=== PATIENT | female | born 1990 | race American Indian/Alaskan Native ===

== ENCOUNTER 2020-12-14 18:19 | Emergency (ER) | payer OTHER ==
[2020-12-14 18:55] VITALS: BP 143/101
--- NOTE | 2020-12-14 18:59 | Emergency Department Report ---
- General Stated Complaint: POS COVID TEST MONDAY/CHEST PAIN Time Seen by Provider: 12/14/20 18:48 - History of Present Illness Initial Comments: 30-year-old -[place] female recently diagnosed with coronavirus and past medical history of asthma presents to the emergency department complaining of cough congestion and coryza which is been progressively worsening since the onset for the last 2 days. No hemoptysis no hematemesis hematochezia. Her is also sick and has a lot of gastrointestinal symptoms but she states that not yet affected her she has been managing fairly well in a normal sinus with exception of the respiratory issues MD Complaint: cough, rhinorrhea, nasal congestion Severity: mild Consistency: constant Improves With: nothing Worsens With: nothing Associated Symptoms: nasal congestion, cough. denies: shortness of breath, abdominal pain, vomiting, diarrhea, confusion, right sweats, weight loss, epistaxis, hoarseness - Related Data Previous Rx's Medication Instructions Recorded Last Taken Type Albuterol Mdi (or & Nicu Only) 2 puff IH QID PRN #1 inhalation 12/14/20 Unknown Rx [ProAir HFA Inhaler] Albuterol Mdi (or & Nicu Only) 2 puff IH QID PRN #8.5 gram 12/14/20 Unknown Rx [ProAir HFA Inhaler] Benzonatate [Tessalon Perles] 100 mg PO Q8HR #20 capsule 12/14/20 Unknown Rx predniSONE [Deltasone] 20 mg PO QDAY #5 tab 12/14/20 Unknown Rx predniSONE [Deltasone] 50 mg PO QDAY #5 tab 12/14/20 Unknown Rx Allergies Allergy/AdvReac Type Severity Reaction Status Date / Time Penicillins Allergy Hives Verified 12/14/20 18:51 ED Review of Systems ROS: Stated complaint: POS COVID TEST MONDAY/CHEST PAIN Other details as noted in HPI Comment: All other systems reviewed and negative ED Past Medical Hx - Medications Home Medications: Home Medications Medication Instructions Recorded Confirmed Last Taken Type Albuterol Mdi (or & Nicu Only) 2 puff IH QID PRN #1 inhalation 12/14/20 Unknown Rx [ProAir HFA Inhaler] Albuterol Mdi (or & Nicu Only) 2 puff IH QID PRN #8.5 gram 12/14/20 Unknown Rx [ProAir HFA Inhaler] Benzonatate [Tessalon Perles] 100 mg PO Q8HR #20 capsule 12/14/20 Unknown Rx predniSONE [Deltasone] 20 mg PO QDAY #5 tab 12/14/20 Unknown Rx predniSONE [Deltasone] 50 mg PO QDAY #5 tab 12/14/20 Unknown Rx ED Physical Exam - General General appearance: alert, in no apparent distress - Head Head exam: Present: atraumatic, normocephalic - Eye Eye exam: Present: normal appearance, PERRL, EOMI Pupils: Present: normal accommodation - ENT ENT exam: Present: normal exam, mucous membranes moist, TM's normal bilaterally - Neck Neck exam: Present: normal inspection, full ROM - Respiratory Respiratory exam: Present: normal lung sounds bilaterally. Absent: respiratory distress, wheezes, rales, rhonchi - Cardiovascular Cardiovascular Exam: Present: regular rate, normal rhythm. Absent: bradycardia, tachycardia, systolic murmur, diastolic murmur, rubs, gallop - GI/Abdominal GI/Abdominal exam: Present: soft, normal bowel sounds - Extremities Exam Extremities exam: Present: normal inspection, normal capillary refill - Back Exam Back exam: Present: normal inspection. Absent: CVA tenderness (R), CVA tenderness (L), muscle spasm, paraspinal tenderness - Neurological Exam Neurological exam: Present: alert, oriented X3, CN II-XII intact. Absent: normal gait, abnormal gait, motor sensory deficit - Psychiatric Psychiatric exam: Present: normal affect, normal mood. Absent: anxious, flat affect, manic - Skin Skin exam: Present: warm, dry, intact, normal color. Absent: rash ED Course Vital Signs 12/14/20 18:52 Temperature 99.4 F Pulse Rate 104 H Respiratory 18 Rate Blood Pressure 143/101 [Right] O2 Sat by Pulse 99 Oximetry ED Medical Decision Making - Radiology Data Radiology results: report reviewed [facility] [address] [place] [address] XRay Report Signed Patient: JESSICA VILLASEÑOR MR#: [id number] : 1990 Acct:[id number] Age/Sex: 30 / F ADM Date: 12/14/20 Loc: ED Attending Dr: Ordering Physician: ISRAEL JOHNSON Date of Service: 12/14/20 Procedure(s): XR chest routine 2V Accession Number(s): [id number] cc: ISRAEL JOHNSON Fluoro Time In Minutes: CHEST PA AND LATERAL VIEWS INDICATION: sob, covid. COMPARISON: None. FINDINGS: Support devices: None. Heart: Within normal limits. Lungs/Pleura: No acute pulmonary or pleural findings. IMPRESSION: 1. No acute findings. Signer Name: Abiel Sage MD Signed: 12/14/2020 7:48 PM Workstation Name: [id number] Transcribed By: NAKITA Dictated By: Abiel Sage MD Electronically Authenticated By: Abiel Sage MD Signed Date/Time: 12/14/201947 DD/ 47 TD/TT: - Medical Decision Making This patient presents to the emergency department with fever and lower respiratory symptoms concerning for viral syndrome including flu and COVID-19. Patient has suspicion and is for COVID-19 infection reports testing positive over a week ago. Chest x-ray is normal showing no pneumonia she is ambulatory speaks in full sentences no desaturation no significant exertional dyspnea differential diagnosis includes other viral causes of lower respiratory symptoms, pneumonia, asthma, bronchitis. Patient is well-appearing with acceptable vitals, lacks comorbidities admission and a reassuring physical examination and is safe to be discharged home and advised to continue Covid protocol.. Provide strict return precautions and instructions on self isolation/quarantine and anticipatory guidance. The patient no necessary fluid hydration, vitamin C and zinc therapy and symptomatic treatment. Critical care attestation.: If time is entered above; I have spent that time in minutes in the direct care of this critically ill patient, excluding procedure time. ED Disposition Clinical Impression: Cough, Viral syndrome Disposition: DC- TO HOME OR SELFCARE Is pt being admited?: No Does the pt Need Aspirin: No Condition: Stable Instructions: Cool Mist Vaporizer, Viral Respiratory Infection, [id number], Viral Respiratory Infection, Cough, Adult, Viral Illness, Adult Prescriptions: predniSONE [Deltasone] 20 mg PO QDAY #5 tab predniSONE [Deltasone] 50 mg PO QDAY #5 tab Albuterol Mdi (or & Nicu Only) [ProAir HFA Inhaler] 2 puff IH QID PRN #1 inhalation PRN Reason: Shortness Of Breath Albuterol Mdi (or & Nicu Only) [ProAir HFA Inhaler] 2 puff IH QID PRN #8.5 gram PRN Reason: Shortness Of Breath Benzonatate [Tessalon Perles] 100 mg PO Q8HR #20 capsule Referrals: PRIMARY CARE, [Primary Care Provider] - 3-5 Days [facility] [Provider Group] - 3-5 Days
[2020-12-14 19:18] LABS: HCG Qualitative,Urine Negative (Negative)
--- NOTE | 2020-12-14 19:53 | XRay Report ---
CHEST PA AND LATERAL VIEWS INDICATION: sob, covid. COMPARISON: None. FINDINGS: Support devices: None. Heart: Within normal limits. Lungs/Pleura: No acute pulmonary or pleural findings. IMPRESSION: 1. No acute findings. Signer Name: Abiel Sage MD Signed: 12/14/2020 7:48 PM Workstation Name: [id number]
== END 2020-12-14 23:00 | disposition home or self-care (01) ==
LOC: ED 18:19
DX: B34.9 Viral infection, unspecified (principal); R05 Cough; Z79.899 Other long term (current) drug therapy; Z88.0 Allergy status to penicillin
CPT/HCPCS: 71046; 81025